=== PATIENT | female | born 1995 | race Caucasian/White ===

== ENCOUNTER 2018-06-24 13:27 | Emergency (ER) | payer BC, MEDICAID ==
[2018-06-24] MEDS ORDERED: ACETAMINOPHEN 325 MG TABLET PO ONE (14:14)
[2018-06-24] MEDS ORDERED: ALBUTEROL SULFATE 0.083% NEB 2.5 MG/3 ML AMPUL NEB ONE (14:14)
--- NOTE | 2018-06-24 14:16 | ER Document Report ---
HPI - HPI Patient complains to provider of: Cough Time Seen by Provider: 06/24/18 14:01 Onset: Other - 9 days Onset/Duration: Worse Quality of pain: Achy Pain Level: 2 Context: Patient states she has had a cough for the past 9 days although her symptoms seem to worsen over the past 2. Patient states she was treated for influenza last week with Tamiflu. Patient is currently 37 weeks . Patient reports productive cough with green sputum. Patient denies any fever. Associated Symptoms: Body/muscle aches, Chills, Productive cough, Rhinnorhea, Sore throat. denies: Chest pain, Fever, Nausea Exacerbated by: Denies Relieved by: Denies Similar symptoms previously: Yes Recently seen / treated by doctor: Yes - ROS ROS below otherwise negative: Yes Systems Reviewed and Negative: Yes All other systems reviewed and negative - CONSTITUTIONAL Constitutional: DENIES: Fever, Chills - EENT EENT: REPORTS: Sore Throat, Nasal Drainage-Clear, Congestion - NEURO Neurology: DENIES: Headache - CARDIOVASCULAR Cardiovascular: DENIES: Chest pain - RESPIRATORY Respiratory: REPORTS: Coughing - GASTROINTESTINAL Gastrointestinal: DENIES: Abdominal Pain, Patient vomiting, Diarrhea - URINARY Urinary: DENIES: Dysuria - REPRODUCTIVE Reproductive: REPORTS: : - MUSCULOSKELETAL Musculoskeletal: DENIES: Extremity pain, Back Pain, Swelling - DERM Skin Color: Normal Skin Problems: None Past Medical History - General Information source: Patient - Social History Smoking Status: Never Smoker Frequency of alcohol use: None Drug Abuse: None 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 IN LAST 30 DAYS: No - HEENT HEENT: Atraumatic, Normocephalic, Pharyngeal Tenderness. negative: Pharyngeal Exudate, Tympanic Membrane Red, Tympanic Membrane Bulging Notes: clear rhinorrhea - NECK Neck: Normal Inspection, Supple. negative: Lymphadenopathy-Left, Lymphadenopath y-Right - RESPIRATORY Respiratory: No Respiratory Distress, Rhonchi, Wheezing - faint - CARDIOVASCULAR Cardiovascular: Regular Rate, Regular Rhythm, No Murmur. negative: Tachycardia - GI/ABDOMEN Gastrointestinal: Abdomen Soft, Abdomen Non-Tender, Normal Bowel Sounds - BACK Back: Normal Inspection - MUSCULOSKELETAL/EXTREMETIES Musculoskeletal/Extremeties: MAEW - NEURO Level of Consciousness: Awake, Alert, Appropriate Motor/Sensory: No Motor Deficit - DERM Integumentary: Warm, Dry, No Rash Course - Re-evaluation Re-evalutation: 06/24/18 15:14 Faint wheeze resolved after nebulizer treatment. Patient continues with congestion. Respirations even unlabored. Chest x-ray reviewed, no concern for pneumonia or PE. No concern for strep at this time. Patient without any tachycardia or hypoxia. 06/24/18 15:15 Patient does have an appointment with her primary doctor tomorrow for recheck. - Vital Signs Vital signs: Temp Pulse Resp BP Pulse Ox 98.5 F 70 16 132/72 H 97 06/24/18 13:57 06/24/18 13:57 06/24/18 13:57 06/24/18 13:57 06/24/18 13:57 - Laboratory Laboratory results interpreted by me: 06/24/18 15:15 Labs- Entire Visit 06/24/18 14:15 Group A Strep Rapid NEGATIVE - Diagnostic Test Radiology reviewed: Image reviewed, Reports reviewed Discharge - Discharge Clinical Impression: Bronchitis Condition: Stable Disposition: HOME, SELF-CARE Instructions: Bronchitis (OM), Inhaled Bronchodilators (OM) Additional Instructions: Return immediately for any new or worsening symptoms Followup with your primary care provider, call tomorrow to make a followup appointment Prescriptions: Albuterol Sulfate [Proair Hfa Inhalation Aerosol 8.5 gm Mdi] 2 puff IH Q4 PRN #1 mdi PRN Reason: Dextromethorphan HBr [Delsym] 30 mg PO Q6 PRN #120 ml PRN Reason: Inhaler,Assist Device,Accesory [Optichamber] 1 each MC Q4 PRN #1 each PRN Reason: Forms: Return to Work Referrals: [facility] [Provider Group] - Follow up tomorrow
--- NOTE | 2018-06-24 14:35 | RADIOLOGY REPORT (SQ) ---
EXAM DESCRIPTION: CHEST 2 VIEWS COMPLETED DATE/TIME: 06/24/2018 2:27 pm REASON FOR STUDY: cough, shield abd COMPARISON: None. EXAM PARAMETERS: NUMBER OF VIEWS: two views TECHNIQUE: Digital Frontal and Lateral radiographic views of the chest acquired. RADIATION DOSE: NA LIMITATIONS: none FINDINGS: LUNGS AND PLEURA: No opacities, masses or pneumothorax. No pleural effusion. MEDIASTINUM AND HILAR STRUCTURES: No masses or contour abnormalities. HEART AND VASCULAR STRUCTURES: Heart normal size. No evidence for failure. BONES: No acute findings. HARDWARE: None in the chest. OTHER: No other significant finding. IMPRESSION: 1. NO ACUTE RADIOGRAPHIC FINDING IN THE CHEST. TECHNICAL DOCUMENTATION: JOB ID: [id number] [employer]- All Rights Reserved Reading location - IP/workstation name: [email or web address]
[2018-06-24 16:03] VITALS: BP 123/69
== END 2018-06-24 15:46 | disposition home or self-care (01) ==
LOC: ER 13:27
DX: O26.93 Pregnancy related conditions, unspecified, third trimester (principal); J40 Bronchitis, not specified as acute or chronic; M79.10 Myalgia, unspecified site; Z3A.37 37 weeks gestation of pregnancy
CPT/HCPCS: 71046; 87070; 87880; 94640; 99283

== ENCOUNTER 2018-06-25 06:02 | Inpatient (IN) | payer BC, MEDICAID ==
[2018-06-25] MEDS ORDERED: RINGERS SOLUTION,LACTATED 1,000 ML IV PRN (06:51)
[2018-06-25] MEDS ORDERED: ONDANSETRON HCL INJ/PF 4 MG/2 ML SDV ONE (06:55)
[2018-06-25] MEDS ORDERED: ONDANSETRON HCL INJ/PF 4 MG/2 ML SDV IV ONE (07:02)
[2018-06-25] MEDS ORDERED: LIDOCAINE 1% INJ-PF (10 MG/ML) 30 ML SDV ONE (07:40)
[2018-06-25] MEDS ORDERED: OXYTOCIN/NORMAL SALINE 20 UNIT/1,000 ML RTUINJ ONE (07:40)
[2018-06-25] MEDS ORDERED: MISOPROSTOL 0.2 MG TABLET ONE (07:40)
--- NOTE | 2018-06-25 08:31 | Admission Physical ---
Datetime Report Generated by CPN: 06/25/2018 08:31 CURRENT ADMISSION Chief Complaint: Uterine Contractions Admit Impression : Term, Intrauterine ; Active Labor Admit Impression- Other: SROM w/ clear fluid Admit Plan: Admit to Unit ALLERGIES Medication Allergies: No Medication Allergies: No Known Allergies (06/25/2018) OBSTETRICAL HISTORY EDC: 07/16/2018 00:00 : 1 Para: 0 Term: 0 : 0 SAB: 0 IAB: 0 Ectopic: 0 Livin Cesareans: 0 VBACs: 0 Multiple Births: 0 Gestational Diabetes: No Rh Sensitization: No Incompetent Cervix: No LORENZO: No Infertility: No ART Treatment: No Uterine Anomaly: No IUGR: No Hx Previous C/S: No Macrosomia: No Hx Loss/Stillborn: No PIH: No Hx : No Placenta Previa/Abruption: No Depression/PP Depression: No PTL/PROM: No Post Hemorrhage: No Current Procedures: Ultrasound Obstetrical History Comments: G1-current MEDICAL HISTORY Diabetes: No Blood Transfusion: No Pulmonary Disease (Asthma, TB): No Breast Disease: No Hypertension: No 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: No Heart Disease: No Hosp/Surgery: Yes Autoimmune Disorder: No Anesthetic Complications: No Kidney Disease: No Abnormal Pap Smear: No Neuro/Epilepsy: No Psychiatric Disorders: No Other Medical Diseases: No Hepatitis/Liver Disease: No Significant Family History: No Varicosities/Phlebitis: No Trauma/Violence : No Thyroid Dysfunction: No Medical History Comments: Tonsilectomy, Headaches INFECTIOUS HISTORY Gonorrhea: No Genital Herpes: No Chlamydia: No Tuberculosis: No Syphilis: No Hepatitis: No HIV/AIDS Exposure: No Rash or Viral Illness: No HPV: No PHYSICAL EXAM General: Normal HEENT: Normal Neurologic: Normal Thyroid: Normal Heart: Normal Lungs: Normal Breast: Normal Back: Normal Abdomen: Normal Genitourinary Exam: Normal Extremities: Normal DTRs: Normal Pelvic Type: Adequate VAGINAL EXAM Dilatation: 9 Effacement: 100 Station: 1 MEMBRANES Membranes: Ruptured Amniotic Fluid Color: Clear FETUS A EGA: 37.0 Monitoring: External US FHR- Baseline: 140 Variability: Moderate 6-25bpm Accelerations: 10X10 Decelerations: Variable FHR Category: Category II Admit Comment: Assuming care of pt. Pt presented this morning with c/o SROM. Pt has gone from 3 cm to 9 cm in approximately 2 hours. Variable decels occuring. O2 applied, position changes made. Dr Garcia is the attending MD and aware of the variable decels and pts status. Anticipate soon INFORMED CONSENT Assignment: Bert Garcia MD Signature: with User ID: [email or web address] : with User ID: [email or web address]
[2018-06-25 08:59] LABS: ABSOLUTE MONOCYTES (AUTO) 0.4 10^3/uL (0.1-1.4); EOSINOPHILS % (AUTO) 0.1 % (0-6); TOTAL CELLS COUNTED % (AUTO) 100 %
[2018-06-25 09:03] LABS: ABSOLUTE LYMPHOCYTES (AUTO) 1.8 10^3/uL (0.5-4.7); ABSOLUTE NEUT (AUTO) 11.6 10^3/uL (1.7-8.2); BASOPHILS % (AUTO) 0.3 % (0-2); HEMATOCRIT 36.3 % (36.0-47.0); HEMOGLOBIN 12.6 g/dL (12.0-15.5); LYMPHOCYTES % (AUTO) 12.8 % (13-45); MEAN CORPUSCULAR HEMOGLOBIN 30.7 pg (27.0-33.4); MEAN CORPUSCULAR HGB CONC 34.9 g/dL (32.0-36.0); MEAN CORPUSCULAR VOLUME 88 fl (80-97); MONOCYTES % (AUTO) 3.2 % (3-13); PLATELET COUNT 159 10^3/uL (150-450); RED BLOOD COUNT 4.12 10^6/uL (3.72-5.28); SEGMENTED NEUTROPHILS % (AUTO) 83.6 % (42-78); WHITE BLOOD COUNT 13.9 10^3/uL (4.0-10.5)
[2018-06-25] MEDS ORDERED: OXYTOCIN/NORMAL SALINE 20 UNIT/1,000 ML RTUINJ IV PRN (09:26)
[2018-06-25] MEDS ORDERED: PSEUDOEPHEDRINE HCL 30 MG TABLET PO PRN (09:26)
[2018-06-25] MEDS ORDERED: PROMETHAZINE HCL INJ 25 MG/1 ML VIAL IV PRN (09:26)
[2018-06-25] MEDS ORDERED: BENZOCAINE/MENTHOL AEROSOL SPRAY 56 ML TOP PRN (09:26)
[2018-06-25] MEDS ORDERED: MAGNESIUM HYDROXIDE SUSP 30 ML UDCUP PO PRN (09:26)
[2018-06-25] MEDS ORDERED: MEASLES,MUMPS&RUBELLA VACC/PF 0.5 ML VIAL SUBCUT PRN (09:26)
[2018-06-25] MEDS ORDERED: ACETAMINOPHEN WITH CODEINE #3 TABLET PO PRN (09:26)
[2018-06-25] MEDS ORDERED: DIBUCAINE 1% OINTMENT 56 GM TP PRN (09:26)
[2018-06-25] MEDS ORDERED: ZOLPIDEM TARTRATE 5 MG TABLET PO PRN (09:26)
[2018-06-25] MEDS ORDERED: NA PHOS,M-B/NA PHOS,DI-BA (ADULT) 133 ML ENEMA PR PRN (09:26)
[2018-06-25] MEDS ORDERED: ACETAMINOPHEN 650 MG SUPP.RECT PR PRN (09:26)
[2018-06-25] MEDS ORDERED: PROMETHAZINE HCL 25 MG TABLET PO PRN (09:26)
[2018-06-25] MEDS ORDERED: PROMETHAZINE HCL 25 MG SUPP.RECT PR PRN (09:26)
[2018-06-25] MEDS ORDERED: GLYCERIN/WITCH HAZEL LEAF 1 EACH MED..PAD TP PRN (09:26)
[2018-06-25] MEDS ORDERED: DIPHENHYDRAMINE HCL 25 MG CAPSULE PO PRN (09:26)
[2018-06-25] MEDS ORDERED: DIPH/PERTUSS(ACELL)/TETANUS VAC/PF 0.5 ML SYR (>=10YO) IM PRN (09:26)
[2018-06-25 09:48] LABS: APPEARANCE,URINE CLEAR; BILIRUBIN,URINE NEGATIVE (NEGATIVE); COLOR,URINE YELLOW; GLUCOSE, URINE NEGATIVE (NEGATIVE); KETONES,URINE NEGATIVE (NEGATIVE); LEUKOCYTE ESTERASE,URINE NEGATIVE (NEGATIVE); NITRITE,URINE NEGATIVE (NEGATIVE); PROTEIN,URINE 30 mg/dL (NEGATIVE); URINE SPECIFIC GRAVITY 1.017; UROBILINOGEN,URINE NEGATIVE mg/dL (<2.0)
[2018-06-25 10:12] LABS: URINE AMPHETAMINES SCREEN NEGATIVE; URINE BENZODIAZEPINES SCREEN NEGATIVE; URINE COCAINE SCREEN NEGATIVE; URINE MARIJUANA (THC) SCREEN NEGATIVE; URINE METHADONE SCREEN NEGATIVE; URINE PHENCYCLIDINE SCREEN NEGATIVE
[2018-06-25 10:18] LABS: URINE BARBITURATES SCREEN UNCONFIRMED POSITIVE
--- NOTE | 2018-06-25 11:04 | Delivery Summary ---
Del Sum A-C Datetime Report Generated by CPN: 06/25/2018 11:03 DELIVERY PERSONNEL DELIVERY PERSONNEL: [id number] Delivery Doctor:: Bert Garcia MD Labor and Delivery Nurse:: Anaya Serrano RNfixed route bus operator Nurse:: Shalonda Ledbetter RN Nursery Nurse:: Tere Corona RN MATERNAL INFORMATION Delivery Anesthesia: None Medications After Delivery: Pitocin Bolus-Please Comment; Pitocin Drip 20 Units/1000ml NSS Maternal Complications: None Provider Comments: deceleration persistent down to 40's vacuume applied 3 pop offs 4 pulls LABOR SUMMARY EDC: 07/16/2018 00:00 No. Babies in Womb: 1 Attempted: No Labor Anesthesia: None LABOR INFORMATION Reason for Induction: Premature Rupture of Membranes Onset of Labor: 06/25/2018 04:00 Complete Dilatation: 06/25/2018 08:50 Oxytocin: N/A Group B Beta Strep: Negative Antibiotics # of Doses: 0 Steroids Given: None Reason Steroids Not Administered: Not Applicable MEMBRANES Membranes Rupture Method: Spontaneous Rupture of Membranes: 06/25/2018 06:30 Length of Rupture (hr): 2.62 Amniotic Fluid Color: Clear Amniotic Fluid Amount: Small Amniotic Fluid Odor: Normal STAGES OF LABOR Stage 1 hr: 4 Stage 1 min: 50 Stage 2 hr: 0 Stage 2 min: 17 Stage 3 hr: 0 Stage 3 min: 4 Total Time in Labor hr: 5 Total Time in Labor min: 11 VAGINAL DELIVERY Episiotomy: None Laceration #1: None Laceration Extension #1: N/A Laceration Repair: Not Applicable Sponge Count Correct: N/A Sharps Count Correct: N/A CSECTION DELIVERY Primary Indication: N/A Secondary Indication: N/A CSection Incidence: N/A Labor: N/A Elective: N/A CSection Incision: N/A BABY A INFORMATION Infant Delivery Date/Time: 06/25/2018 09:07 Method of Delivery: Vaginal Born in Route : No : N/A Forceps: N/A Vacuum Extraction: Successful Shoulder Dystocia : No ASSISTED DELIVERY BABY A Indication for Assisted Delivery: Poor maternal effort, FHT indication Catheter Prior to Procedure: No Vacuum Number of Pulls: 4 Vacuum Number of PopOffs: 3 PRESENTATION/POSITION BABY A Presentation: Cephalic Cephalic Presentation: Vertex Vertex Position: Left Occipital Anterior Breech Presentation: N/A PLACENTA INFORMATION BABY A Placenta Delivery Time : 06/25/2018 09:11 Placenta Method of Delivery: Spontaneous Placenta Status: Delivered SCORES BABY A Heart Rate 1 min: >100 bpm Resp Effort 1 min: Slow, Irregular Reflex Irritability 1 min: Cough or Sneeze or Pulls Away Muscle Tone 1 min: Active Motion Color 1 min: Body [place], Extremities Blue Resuscitation Effort 1 min: N/A SCORE 1 MIN: 8 Heart Rate 5 min: >100 bpm Resp Effort 5 min: Good Cry Reflex Irritability 5 min: Cough or Sneeze or Pulls Away Muscle Tone 5 min: Active Motion Color 5 min: Body [place], Extremities Blue Resuscitation Effort 5 min: N/A SCORE 5 MIN: 9 INFANT INFORMATION BABY A Gestational Age at Delivery: 37.0 Gestational Status: Early Term- 37- 38.6 Weeks Infant Outcome : Liveborn Condition : Stable Infant Sex: Male IDENTIFICATION BABY A Verification Date/Time: 06/25/2018 09:33 ID Band Number: [id number] Mother's Name Verified: Yes Infant RN Verifying : C. Maggie RN, C. Ledbetter, RN CORD INFORMATION BABY A No. Cord Vessels: 3 Nuchal Cord : Around Neck x1, Loose Cord Blood Taken: Yes-For Storage (Mom's Blood type +) Suction: None ASSESSMENT BABY A Infant Complications: Multiple Late Decels; Multiple Variable Decels Physical Findings at Delivery: Caput Succedaneum Physical Findings- Other: caput nuchal cord body cord Infant Respirations: Appears Normal Skin to Skin: Yes Skin to Skin Time (min): 60 Manufacturing Specialist/ALS Called : No Infant Care By: Daniel Corona RN Transferred To: Remains with Mother BABY B INFORMATION : N/A SIGNATURES Signature: with User ID: [email or web address]
[2018-06-25] MEDS: IBUPROFEN 800 MG TABLET PO SCH ×2 (13:45→21:39)
[2018-06-25] MEDS: FAMOTIDINE 20 MG TABLET PO SCH ×2 (13:45→21:40)
[2018-06-25] MEDS: FERROUS SULFATE 325 MG TABLET PO SCH ×2 (13:45→17:34)
[2018-06-25] MEDS: SENNOSIDES/DOCUSATE 8.6-50 MG 1 EACH TABLET PO SCH (13:45)
[2018-06-25] MEDS: PRENATAL VITAMIN W DHA CAPSULE PO SCH (13:45)
[2018-06-25] MEDS: DOCUSATE SODIUM 100 MG CAPSULE PO SCH ×2 (13:45→17:34)
[2018-06-25] MEDS: GUAIFENESIN SYRP 200 MG/10 ML UDC PO PRN ×2 (16:48→21:39)
[2018-06-26] MEDS: GUAIFENESIN SYRP 200 MG/10 ML UDC PO PRN ×3 (03:26→18:56)
[2018-06-26] MEDS: IBUPROFEN 800 MG TABLET PO SCH ×2 (06:51→15:00)
[2018-06-26 07:31] LABS: HEMATOCRIT 34.2 % (36.0-47.0); HEMOGLOBIN 11.7 g/dL (12.0-15.5); MEAN CORPUSCULAR HEMOGLOBIN 30.7 pg (27.0-33.4); MEAN CORPUSCULAR HGB CONC 34.3 g/dL (32.0-36.0); MEAN CORPUSCULAR VOLUME 90 fl (80-97); PLATELET COUNT 172 10^3/uL (150-450); RED BLOOD COUNT 3.82 10^6/uL (3.72-5.28); RED CELL DISTRIBUTION WIDTH 13.1 % (11.5-14.0); WHITE BLOOD COUNT 13.7 10^3/uL (4.0-10.5)
[2018-06-26] MEDS: DOCUSATE SODIUM 100 MG CAPSULE PO SCH ×2 (10:33→18:54)
[2018-06-26] MEDS: SENNOSIDES/DOCUSATE 8.6-50 MG 1 EACH TABLET PO SCH (10:33)
[2018-06-26] MEDS: FAMOTIDINE 20 MG TABLET PO SCH (10:33)
[2018-06-26] MEDS: FERROUS SULFATE 325 MG TABLET PO SCH ×2 (10:33→18:54)
[2018-06-26] MEDS: PRENATAL VITAMIN W DHA CAPSULE PO SCH (10:33)
--- NOTE | 2018-06-26 11:23 | PDOC PROGRESS REPORT ---
Subjective-OB Progress Note for:: 06/26/18 Subjective: 23yo G1 now P1 s/p ppd 1. Ambulating and voiding without difficulty.Reports pain well controlled with medication. Baby remains in NICU, pt pumping, no concerns today. Physical Exam (OB) Vital Signs: Temp Pulse Resp BP Pulse Ox 97.4 F 66 16 110/71 97 06/26/18 08:08 06/26/18 08:08 06/26/18 08:08 06/26/18 08:08 06/26/18 08:08 Intake & Output 06/25/18 06/26/18 06/27/18 06:59 06:59 06:59 Intake Total 1000 350 Balance 1000 350 Weight 55.6 kg - General General Appearance: Appears well In distress: None - PIH/Pre-Eclampsia Clonus: Negative Headache: Absent Epigastric Pain: No Visual Changes: No - Episiotomy/Laceration Site Condition: N/A - Lochia Lochia Amount: Scant < 10 ml Lochia Color: Rubra/Red - Abdomen Description: Soft Hernia Present: No Fundal Description: Firm, Midline Fundal Height: u/u - u/2 - Respiratory Respiratory Status: No respiratory distress - Extremities Upper extremity: Normal inspection Lower extremities: Normal inspection - Neurological Cognition: Normal Orientation: AAOx4 - Psychological Associated symptoms: Normal affect, Normal mood Objective-Diagnostic Laboratory: 06/26/18 07:12 06/26/18 07:12 WBC 13.7 H RBC 3.82 Hgb 11.7 L Hct 34.2 L MCV 90 MCH 30.7 MCHC 34.3 RDW 13.1 Plt Count 172 Assessment and Plan(PN) - Assessment and Plan (1) Status post vacuum-assisted vaginal delivery Is this a current diagnosis for this admission?: Yes Plan: Routine pp care (2) Bronchitis Is this a current diagnosis for this admission?: Yes Plan: Continue to monitor for s/s of decompensation, plan as ordered by admitting provider. - Time Spent with Patient Time with patient: Less than 15 minutes Medications reviewed and adjusted accordingly: Yes - Disposition Anticipated Discharge: Home Within: within 24 hours
[2018-06-26 19:55] VITALS: BP 126/66
[2018-06-27] MEDS: GUAIFENESIN SYRP 200 MG/10 ML UDC PO PRN ×2 (02:30→09:11)
[2018-06-27] MEDS: IBUPROFEN 800 MG TABLET PO SCH ×3 (08:02→13:01)
[2018-06-27] MEDS: FERROUS SULFATE 325 MG TABLET PO SCH (09:11)
[2018-06-27] MEDS: PRENATAL VITAMIN W DHA CAPSULE PO SCH (09:11)
[2018-06-27] MEDS: DOCUSATE SODIUM 100 MG CAPSULE PO SCH (09:11)
[2018-06-27] MEDS: SENNOSIDES/DOCUSATE 8.6-50 MG 1 EACH TABLET PO SCH (09:11)
[2018-06-27] MEDS: FAMOTIDINE 20 MG TABLET PO SCH ×2 (09:11)
--- NOTE | 2018-06-27 11:06 | PDOC DISCHARGE SUMMARY ---
Final Diagnosis Discharge Date: 06/27/18 - Final Diagnosis (1) Status post vacuum-assisted vaginal delivery Is this a current diagnosis for this admission?: Yes Discharge Data - Discharge Medication Home Medications: Albuterol Sulfate [Proair Hfa Inhalation Aerosol 8.5 gm Mdi] 2 puff IH Q4 PRN #1 mdi 06/24/18 Dextromethorphan HBr [Delsym] 30 mg PO Q6 PRN #120 ml 06/24/18 Inhaler,Assist Device,Accesory [Optichamber] 1 each MC Q4 PRN #1 each 06/24/18 Pnv No.95/Ferrous Fum/Folic AC [ Formula Tablet] 1 tab PO DAILY 06/24/18 Butalb/Acetaminophen/Caffeine [Fioricet (50-325-40 mg) Tablet] 1 tab PO Q4HP PRN 06/25/18 Reason(s) for Admission: Onset of Labor Procedures: NST Intrapartum Procedure(s): Vacuum Extraction - Diagnosis Test Laboratory: Temp Pulse Resp BP Pulse Ox 98.4 F 68 18 126/66 H 93 06/26/18 19:34 06/26/18 19:34 06/26/18 19:34 06/26/18 19:34 06/26/18 19:34 06/25/18 06/25/18 06/26/18 08:45 08:45 07:12 RBC 4.12 3.82 Hgb 12.6 11.7 L Hct 36.3 34.2 L Urine Opiates Screen NEGATIVE - Discharge information/Instructions Discharge Activity: Balance Activity w/Rest, Pelvic Rest Discharge Diet: Regular Disposition: HOME, SELF-CARE Follow up with: [facility] in: 4, Weeks
== END 2018-06-27 13:28 | disposition home or self-care (01) | DRG 807 ==
LOC: LC 06:02 → LR 06:52 → 2S 11:15
PROVIDERS: ADMIT Obstetrics & Gynecology; ATTEND Obstetrics & Gynecology Gynecology
PROC: 10D07Z6 Extraction of Products of Conception, Vacuum, Via Natural or Artificial Opening (ICD-10-PCS; principal; 2018-06-25)
PROC: 4A1HXCZ Monitoring of Products of Conception, Cardiac Rate, External Approach (ICD-10-PCS; 2018-06-25)
DX: O76 Abnormality in fetal heart rate and rhythm complicating labor and delivery (principal); Z37.0 Single live birth; O69.81X0 Labor and delivery complicated by cord around neck, without compression, not applicable or unspecified; O75.81 Maternal exhaustion complicating labor and delivery; O42.92 Full-term premature rupture of membranes, unspecified as to length of time between rupture and onset of labor; Z3A.37 37 weeks gestation of pregnancy; J40 Bronchitis, not specified as acute or chronic; O99.52 Diseases of the respiratory system complicating childbirth
CPT/HCPCS: 36415; 80307; 81005; 84112; 85025; 85027; 86592; 86850; 86900; 86901; J2405; J2590; J3490

== ENCOUNTER → 2018-06-30 | Outpatient (CLI) | payer BC, MEDICAID | LOC: LAB 19:09 | PROVIDERS: ATTEND Pediatrics Neonatal-Perinatal Medicine | DX: Z53.9 Procedure and treatment not carried out, unspecified reason (principal) ==